=== PATIENT | male | born 2000 | race Caucasian/White ===

== ENCOUNTER 2019-09-27 13:38 | Emergency (ER) | payer OTHER ==
[~2019-09-27] VITALS: Ht 182.9 cm; Wt 81.9 kg
[2019-09-27 14:52] LABS: HEMATOCRIT 46.5 % (42.0-52.0); HEMOGLOBIN 15.9 g/dl (13.5-17.5); MEAN CORPUSCULAR HEMOGLOBIN 30.6 pg (27.0-33.0); MEAN CORPUSCULAR HGB CONC 34.2 g/dl (32.0-36.5); MEAN CORPUSCULAR VOLUME 89.6 fl (80.0-96.0); PLATELET COUNT, AUTOMATED 274 10^3/uL (150-450); RED BLOOD COUNT 5.19 10^6/uL (4.30-6.10); WHITE BLOOD COUNT 7.8 10^3/uL (4.0-10.0)
[2019-09-27 15:16] LABS: AMPHETAMINES LEVEL URINE NEGATIVE (NEGATIVE); BARBITURATES URINE NEGATIVE (NEGATIVE); BENZODIAZEPINES URINE NEGATIVE (NEGATIVE); CANNABINOIDS URINE NEGATIVE (NEGATIVE); COCAINE METABOLITE URINE NEGATIVE (NEGATIVE); METHADONE URINE NEGATIVE (NEGATIVE); OPIATES URINE NEGATIVE (NEGATIVE); PHENCYCLIDINE URINE NEGATIVE (NEGATIVE)
[2019-09-27 15:30] LABS: ACETAMINOPHEN LEVEL < 2.0 UG/ML (10.0-30.0); ALBUMIN 4.3 GM/DL (3.2-5.2); ALT/SGPT 19 U/L (12-78); BILIRUBIN,DIRECT 0.2 MG/DL (0.0-0.2); BILIRUBIN,TOTAL 0.5 MG/DL (0.2-1.0); BLOOD UREA NITROGEN 10 MG/DL (7-18); CALCIUM LEVEL 8.6 MG/DL (8.5-10.1); CARBON DIOXIDE LEVEL 26 MEQ/L (21-32); CHLORIDE LEVEL 107 MEQ/L (98-107); CREATININE FOR GFR 0.82 MG/DL (0.70-1.30); ETHYL ALCOHOL (ETHANOL) 0.042 % (0.000-0.010); GLUCOSE, FASTING 71 MG/DL (70-100); POTASSIUM SERUM 4.3 MEQ/L (3.5-5.1); SALICYLATE LEVEL < 1.7 MG/DL (5.0-30.0); SODIUM LEVEL 141 MEQ/L (136-145); TOTAL PROTEIN 7.5 GM/DL (6.4-8.2)
--- NOTE | 2019-09-27 17:22 | ECGEPIP ---
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
[2019-09-27 20:54] VITALS: BP 110/63
== END 2019-09-27 21:00 ==
LOC: M ED 13:38
DX: F33.2 Major depressive disorder, recurrent severe without psychotic features (principal); R45.851 Suicidal ideations; F17.200 Nicotine dependence, unspecified, uncomplicated
CPT/HCPCS: 36415; 80048; 80076; 80307; 84443; 85027; 93005; 99285; G0480

== ENCOUNTER 2020-04-23 08:23 | Inpatient (IN) | payer OTHER ==
[~2020-04-23] VITALS: Ht 182.9 cm; Wt 190.0 kg
[2020-04-23] MEDS ORDERED: VIST50CA PO (08:37)
[2020-04-23] MEDS ORDERED: PROZ10CA7 PO (08:37)
[2020-04-23 09:15] LABS: HEMATOCRIT 47.5 % (42.0-52.0); HEMOGLOBIN 16.3 g/dl (13.5-17.5); MEAN CORPUSCULAR HGB CONC 34.3 g/dl (32.0-36.5); MEAN CORPUSCULAR VOLUME 87.3 fl (80.0-96.0); PLATELET COUNT, AUTOMATED 307 10^3/uL (150-450); RED BLOOD COUNT 5.44 10^6/uL (4.30-6.10); WHITE BLOOD COUNT 5.3 10^3/uL (4.0-10.0)
[2020-04-23 09:44] LABS: AMPHETAMINES LEVEL URINE NEGATIVE (NEGATIVE); BARBITURATES URINE NEGATIVE (NEGATIVE); BENZODIAZEPINES URINE NEGATIVE (NEGATIVE); CANNABINOIDS URINE NEGATIVE (NEGATIVE); COCAINE METABOLITE URINE NEGATIVE (NEGATIVE); METHADONE URINE NEGATIVE (NEGATIVE); OPIATES URINE NEGATIVE (NEGATIVE); PHENCYCLIDINE URINE NEGATIVE (NEGATIVE)
[2020-04-23 09:53] LABS: ACETAMINOPHEN LEVEL < 2.0 UG/ML (10.0-30.0); ALBUMIN 4.2 GM/DL (3.2-5.2); ALT/SGPT 25 U/L (12-78); BILIRUBIN,DIRECT 0.1 MG/DL (0.0-0.2); BILIRUBIN,TOTAL 0.3 MG/DL (0.2-1.0); BLOOD UREA NITROGEN 11 MG/DL (7-18); CALCIUM LEVEL 8.5 MG/DL (8.5-10.1); CARBON DIOXIDE LEVEL 30 MEQ/L (21-32); CHLORIDE LEVEL 109 MEQ/L (98-107); CREATININE FOR GFR 0.91 MG/DL (0.70-1.30); ETHYL ALCOHOL (ETHANOL) 0.179 % (0.000-0.010); GLUCOSE, FASTING 98 MG/DL (70-100); SALICYLATE LEVEL < 1.7 MG/DL (5.0-30.0); SODIUM LEVEL 140 MEQ/L (136-145); TOTAL PROTEIN 7.6 GM/DL (6.4-8.2)
[2020-04-23] MEDS ORDERED: MOM 30ML SUSPENSION UDC PO PRN (15:30)
[2020-04-23] MEDS ORDERED: ACETAMINOPHEN TAB 650MG DOSE (2X325MG) PO PRN (15:30)
[2020-04-23] MEDS ORDERED: LORazepam 2 MG TAB PO PRN (15:30)
[2020-04-23] MEDS ORDERED: MAALOX 30 ML SUSP *UDC PO PRN (15:30)
[2020-04-23] MEDS ORDERED: MED REC COMMENT (15:38)
[2020-04-23] MEDS: FOLIC ACID 1 MG TAB PO SCH (16:16)
[2020-04-23] MEDS: MULTIVITAMINS/MINERALS THERAP 1 TAB PO SCH (16:17)
[2020-04-23] MEDS: THIAMINE 100 MG TAB PO SCH ×2 (16:17→21:22)
[2020-04-23] MEDS: traZODone 50 MG TAB PO PRN (21:22)
[2020-04-24 06:24] VITALS: BP 130/61
[2020-04-24] MEDS: THIAMINE 100 MG TAB PO SCH ×2 (08:36→21:31)
[2020-04-24] MEDS: MULTIVITAMINS/MINERALS THERAP 1 TAB PO SCH (08:36)
[2020-04-24] MEDS: FOLIC ACID 1 MG TAB PO SCH (08:36)
[2020-04-24] MEDS: NICOTINE 21MG/24HR 1 EA TRANSDERMAL TD SCH (11:16)
[2020-04-24] MEDS: FLUoxetine 10 MG CAP PO SCH (15:08)
[2020-04-24 16:13] VITALS: BP 121/59
[2020-04-24 18:49] VITALS: BP 121/59
--- NOTE | 2020-04-24 19:34 | HPEPDOC ---
[facility] Medical History & Physical Date of Admission Apr 24, 2020 Date of Service: Apr 24, 2020 Attending Physician: DAVE DAILEY DO History and Physical CHIEF COMPLAINT: Consulted for medical intake for psychiatric admission patient. Presented to the ED for suicide attempted, etoh intoxication. Only medical complaint is pain of the R hand, states "i slammed it in a car door accidentally" HISTORY OF PRESENT ILLNESS: Patient presenting to ED after suicide attempt while intoxicated. C/o R hand pain at the side of the head of 5th metacarpal. Injury occured after compressing hand in car door accidently. Denies loss of ROM, no numbness no tingling. PAST MEDICAL HISTORY: 1. etoh use disorder PAST SURGICAL HISTORY: non contributor. SOCIAL HISTORY: etoh use disorder smoker FAMILY HISTORY: non contributory ALLERGIES: Please see below. REVIEW OF SYSTEMS: CONSTITUTIONAL: none. HEENT: none. CARDIOVASCULAR: none RESPIRATORY: none GASTROINTESTINAL: none GENITOURINARY: none SKIN: none MUSCULOSKELETAL: pain in R 5th metacarpal NEUROLOGICAL: no focal neuro deficits PSYCHIATRIC: calm, cooperative ENDOCRINE: none HEMATOLOGIC/LYMPHATIC: none HOME MEDICATIONS: Please see below. PHYSICAL EXAMINATION: GENERAL APPEARANCE: NAD HEENT: PERRLA, EOMI CARDIOVASCULAR: RRR, normal S1, S2 LUNGS: CTA, no wheeze, no rales ABDOMEN: soft, non tender MUSCULOSKELETAL: abrasion on R 5th digit. Pain to palpation of R 5th distal metatarsal. ROM slightly limited due to discomfort. No sensory loss. EXTREMITIES: wnl, no edema NEUROLOGICAL: no focal neuro deficits PSYCHIATRIC: AAO x 3, calm, cooperative. LABORATORY DATA: See below ASSESSMENT: 19 yo M with a hx of etoh use disorder, suicidal ideation, admitted for SI to [facility]. C/o of R hand pain, after it got caught in car door. . PLAN: 1. R hand pain: s/p injury. Obtain R hand xray. Pain control with tylenol. 2. SI: per psychiatry. prozac 10 mg, trazodone 50 mg daily 3. constipation: bowel regimen Thank you for the consult. Please re-consult should need arise. Vital Signs Vital Signs Date Time Temp Pulse Resp B/P (MAP) Pulse Ox O2 Delivery O2 Flow Rate FiO2 04/24/20 18:49 61 121/59 04/24/20 16:13 98.2 18 04/24/20 06:24 Room Air 04/23/20 16:18 97 Home Medications Scheduled Fluoxetine HCl (Prozac) 10 Mg Capsule, 10 MG PO DAILY Hydroxyzine Pamoate (Vistaril) 50 Mg Capsule, 50 MG PO TID for anxiety Miscellaneous Medications [Med Rec Comment] TRYING TO REACH [facility] TO VERIFY MEDS, NO ANSWER Allergies Coded Allergies: No Known Allergies (Verified Allergy, Unknown, 09/27/19) A-FIB/CHADSVASC A-FIB History Current/History of A-Fib/PAF?: No Current PO Anticoag Therapy: No SAWYER STOCKTON MD Apr 24, 2020 19:34
[2020-04-24] MEDS: traZODone 50 MG TAB PO PRN (21:31)
[2020-04-25 06:00] VITALS: BP 135/60
[2020-04-25 06:43] VITALS: BP 135/60
[2020-04-25] MEDS: MULTIVITAMINS/MINERALS THERAP 1 TAB PO SCH (08:48)
[2020-04-25] MEDS: FOLIC ACID 1 MG TAB PO SCH (08:48)
[2020-04-25] MEDS: THIAMINE 100 MG TAB PO SCH ×2 (08:48→21:46)
[2020-04-25] MEDS: NICOTINE 21MG/24HR 1 EA TRANSDERMAL TD SCH (08:48)
[2020-04-25] MEDS: FLUoxetine 10 MG CAP PO SCH (08:48)
[2020-04-25 16:29] VITALS: BP 113/60
[2020-04-25] MEDS: traZODone 50 MG TAB PO PRN (21:46)
[2020-04-26 06:34] VITALS: BP 119/95
[2020-04-26] MEDS: FLUoxetine 10 MG CAP PO SCH (09:25)
[2020-04-26] MEDS: MULTIVITAMINS/MINERALS THERAP 1 TAB PO SCH (09:25)
[2020-04-26] MEDS: FOLIC ACID 1 MG TAB PO SCH (09:25)
[2020-04-26] MEDS: NICOTINE 21MG/24HR 1 EA TRANSDERMAL TD SCH (09:27)
--- NOTE | 2020-04-26 11:41 | MHIPNPDOC ---
[facility] Progress Note Progress Note DATE OF SERVICE: 04/26/20 HISTORY: . VITAL SIGNS: See below. NEW TEST RESULTS: . CURRENT MEDICATIONS: See below. MENTAL STATUS EXAMINATION: Patient is a -year old male, who is . Speech: Is . Language skills are . Thought processes including: . Thought content: . Abstract reasoning, and computation: . Description of associ ations: . Description of abnormal or psychotic thoughts: . Judgment: . Insight: [very limited, good, fair. poor]. Orientation: . Recent and remote memory: . Attention span and concentration: . Language: . Fund of knowledge: . Mood: . Affect: . DIAGNOSES: 1. . 2. . 3. . ASSESSMENT: MANAGEMENT PLAN: . TIME SPENT: minutes. Vital Signs Vital Signs Date Time Temp Pulse Resp B/P (MAP) Pulse Ox O2 Delivery O2 Flow Rate FiO2 04/26/20 06:34 98.0 65 16 119/95 (103) 04/24/20 06:24 Room Air 04/23/20 16:18 97 Current Medications Current Medications Medications (Trade) Dose Ordered Sig/Bryn Route PRN Reason Start Time Stop Time Status Last Admin Dose Admin Acetaminophen (Tylenol Tab) 650 mg Q6HP PRN PO HEADACHE or DISCOMFORT 04/23/20 15:30 Al Hydrox/Mg Hydrox/Simethicone (Mylanta) 30 ml Q4HP PRN PO HEARTBURN/INDIGESTION 04/23/20 15:30 Fluoxetine HCl (PROzac) 10 mg DAILY PO 04/24/20 09:00 04/26/20 09:25 Folic Acid (Folic Acid) 1 mg DAILY PO 04/23/20 09:00 04/26/20 09:25 Home Med (Med Rec Complete!) ASDIRECTED XX 04/26/20 08:15 04/26/20 08:18 DC Lorazepam (Ativan) 2 mg ASDIRECTED PRN PO SEE PROTOCOL 04/23/20 15:30 Magnesium Hydroxide (Milk Of Magnesia) 30 ml DAILYPRN PRN PO CONSTIPATION 04/23/20 15:30 Multivitamins (Theragram-M) 1 tab DAILY PO 04/23/20 09:00 04/26/20 09:25 Nicotine (Nicoderm Cq 21mg) 1 patch DAILY TD 04/24/20 09:00 04/26/20 09:27 Thiamine HCl (Thiamine HCl) 100 mg BID PO 04/23/20 09:00 04/26/20 08:59 DC 04/25/20 21:46 Trazodone HCl (Desyrel) 50 mg QHSP PRN PO INSOMNIA 04/23/20 15:30 04/25/20 21:46 Allergies Coded Allergies: No Known Allergies (Verified Allergy, Unknown, 09/27/19) DAVE DAILEY DO Apr 26, 2020 11:41
--- NOTE | 2020-04-26 17:20 | MHIPNPDOC ---
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 VITAL SIGNS: See below. NEW TEST RESULTS: . CURRENT MEDICATIONS: See below. MENTAL STATUS EXAMINATION: Patient is a 19-year old male, who is admitted to psychiatry for depression, anxiety and suicidal thoughts. Speech: Is spontaneous, fluid and conversation. Normal rate tone and volume Language skills are Good Thought processes including: Reality-base, linear and goal-oriented Thought content: Negative for abnormal thought or psychosis. Abstract reasoning, and computation: Good Description of associations: Negative Description of abnormal or psychotic thoughts: Patient reports depression, anxiety, fleeting suicidal ideation but contracts for safety. Judgment: Fair Insight: Fair Orientation: Alert and oriented Recent and remote memory: Good Attention span and concentration: Good Language: Good Fund of knowledge: Good Mood: Euthymic Affect: Reactive DIAGNOSES: 1. Unspecified Mood Disorder 2. Generalized Anxiety Disorder ASSESSMENT: Patient presents today as euthymic mood and reactive affect. Denies depressive symptoms, suicidal ideation but reports anxiety. Patient has numerous circular quinn to left forearm made by cigarette. Patient states he has a long history of self-harm gestures. He reports one suicidal gesture but no actual attempt. He has good supports, moderately worried that he may be discharged from the but does not that. MANAGEMENT PLAN: Continue on current medication regimen. Patient reports anxiety, long history of it. Buspar 5 mg three times daily TIME SPENT: 30 minutes. Vital Signs Vital Signs Date Time Temp Pulse Resp B/P (MAP) Pulse Ox O2 Delivery O2 Flow Rate FiO2 04/26/20 06:34 98.0 65 16 119/95 (103) 04/24/20 06:24 Room Air 04/23/20 16:18 97 Current Medications Current Medications Medications (Trade) Dose Ordered Sig/Bryn Route PRN Reason Start Time Stop Time Status Last Admin Dose Admin Acetaminophen (Tylenol Tab) 650 mg Q6HP PRN PO HEADACHE or DISCOMFORT 04/23/20 15:30 Al Hydrox/Mg Hydrox/Simethicone (Mylanta) 30 ml Q4HP PRN PO HEARTBURN/INDIGESTION 04/23/20 15:30 Fluoxetine HCl (PROzac) 10 mg DAILY PO 04/24/20 09:00 04/26/20 09:25 Folic Acid (Folic Acid) 1 mg DAILY PO 04/23/20 09:00 04/26/20 09:25 Home Med (Med Rec Complete!) ASDIRECTED XX 04/26/20 08:15 04/26/20 08:18 DC Lorazepam (Ativan) 2 mg ASDIRECTED PRN PO SEE PROTOCOL 04/23/20 15:30 Magnesium Hydroxide (Milk Of Magnesia) 30 ml DAILYPRN PRN PO CONSTIPATION 04/23/20 15:30 Multivitamins (Theragram-M) 1 tab DAILY PO 04/23/20 09:00 04/26/20 09:25 Nicotine (Nicoderm Cq 21mg) 1 patch DAILY TD 04/24/20 09:00 04/26/20 09:27 Thiamine HCl (Thiamine HCl) 100 mg BID PO 04/23/20 09:00 04/26/20 08:59 DC 04/25/20 21:46 Trazodone HCl (Desyrel) 50 mg QHSP PRN PO INSOMNIA 04/23/20 15:30 04/25/20 21:46 Allergies Coded Allergies: No Known Allergies (Verified Allergy, Unknown, 09/27/19) GWENDOLYN SCHWAB NP Apr 26, 2020 17:20
[2020-04-26] MEDS: busPIRone 5 MG TAB PO SCH ×2 (17:29→21:48)
[2020-04-26 17:39] VITALS: BP 116/64
[2020-04-27 06:57] VITALS: BP 127/58
[2020-04-27] MEDS: MULTIVITAMINS/MINERALS THERAP 1 TAB PO SCH (08:13)
[2020-04-27] MEDS: busPIRone 5 MG TAB PO SCH (08:13)
[2020-04-27] MEDS: NICOTINE 21MG/24HR 1 EA TRANSDERMAL TD SCH (08:13)
[2020-04-27] MEDS: FOLIC ACID 1 MG TAB PO SCH (08:13)
[2020-04-27] MEDS: FLUoxetine 10 MG CAP PO SCH (08:13)
[2020-04-27] MEDS ORDERED: BUSP5TA PO (09:45)
[2020-04-27] MEDS ORDERED: PROZ10CA7 PO (09:45)
[2020-04-27] MEDS ORDERED: VIST50CA PO (09:45)
[2020-04-27] MEDS ORDERED: TRAZ-252 PO (09:45)
[2020-04-27] MEDS ORDERED: VITMTA PO (09:45)
[2020-04-27] MEDS ORDERED: FOLI1TAB11 PO (09:45)
[2020-04-27] MEDS ORDERED: NICO21PAT TD (09:45)
[2020-04-27] MEDS ORDERED: FLUoxetine 10 MG CAP PO ONE (10:00)
--- NOTE | 2020-04-27 13:34 | MHDSPDOC ---
[facility] Discharge Summary Discharge Summary DATE OF ADMISSION: Apr 23, 2020 at 15:20 DATE OF DISCHARGE: Apr 27, 2020 at 11:30 DISCHARGE DIAGNOSES: 1. Unspecified Mood Disorder 2. Generalized Anxiety Disorder 3. Alcohol Use Disorder REASON FOR ADMISSION: Patient complained of suicidal ideation and anxiety after drinking excessive amounts of alcohol. CONSULTANTS INVOLVED: Patient see Medical MD's H & P report TREATMENT AND PROGRESS ON THE UNIT : Patient was afforded 1) Individual Therapy, 2) Group Therapy, 3) Medication Management, 4)Milieu Therapy 5) Safe Environment HOSPITAL COURSE: Patient was admitted to inpatient Mental Health for his complaints of anxiety and suicidal ideation. Patient reported that he had an e xcessive amount of alcohol and was "feeling down" and wanted to commit suicide. He states that he has had intermitted depressive symptoms since November but he complains mostly of Anxiety which he reports he has had since he was a teen. He has a alcohol use history and states that he has had this issue for awhile and is currently in Treatment at [facility]. He reports that he has a safety plan with his therapist, his Birgit and that he utilizes it often. He was withdrawn to his room most times but was reading and states that he was very much enjoying the book. He was seen in the common rooms and social with peers when he was in the milieu. DISCHARGE ASSESSMENT: In today's discharge interview patient is requesting discharge. He reports no suicidal or homicidal ideation. No reports of depression or anxiety during today's interview. He is not observed with auditory or visual hallucinations. He is not delusional, paranoid, manic, or observed with any abnormal thought content. 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 He reported that he had been drinking and wrapped a belt around his neck and was looking for a high place to hang himself. He reports that he did not do anything but tie the belt around his neck. He then called his [facility] and reported his suicidal gesture. He presents with good hygiene and grooming, dress is appropriate. Speech is spontaneous, fluid and mildly conversant. Language skills are Good Thought processes including: linear and goal oriented Thought content: Negative for adnormal thoughts content Abstract reasoning, and computation: Good Description of associations: Negative Description of abnormal or psychotic thoughts: Negative Judgment: Fair to good Insight: Fair to good Orientation to alert and orientation Recent and remote memory: Intact Attention span and concentration: Good Language: Good. Speak Malawian as primary language Fund of knowledge: Good. congruent with his education Mood: Euthymic Affect: Euthymic MEDICATIONS ON DISCHARGE: See medication reconciliation PLAN/FOLLOWUP ARRANGEMENTS: Patient will follow up with [facility] The amount of time spent in the coordination of care for this patient was approximately 45 minutes. Vital Signs/I&Os Vital Signs Date Time Temp Pulse Resp B/P (MAP) Pulse Ox O2 Delivery O2 Flow Rate FiO2 04/27/20 06:57 97.9 68 12 127/58 (81) 99 Room Air Medications Scheduled Buspirone HCl (Buspirone HCl) 5 Mg Tablet, 5 MG PO TID for anxiety, #21 Fluoxetine HCl (Prozac) 10 Mg Capsule, 20 MG PO DAILY for . , #7 Folic Acid (Folic Acid) 1 Mg Tablet, 1 MG PO DAILY for vitamin replacement, #7 Multivitamins (Thera M Plus Tablet) 1 Each Tablet, 1 TAB PO DAILY for Multivitamin, #7 Nicotine (Nicotine Patch) 21 Mg Patch.td24, 1 PATCH TD DAILY for Nicotine Withdrawal, #7 Scheduled PRN Hydroxyzine Pamoate (Vistaril) 50 Mg Capsule, 50 MG PO BIDP PRN for ANXIETY, #14 Trazodone HCl (Trazodone HCl) 50 Mg Tablet, 50 MG PO QHSP PRN for INSOMNIA, #7 Allergies Coded Allergies: No Known Allergies (Verified Allergy, Unknown, 09/27/19) GWENDOLYN SCHWAB NP Apr 27, 2020 13:34
--- NOTE | 2020-05-27 08:50 | REP ---
RIGHT HAND SERIES: 2-VIEWS HISTORY: Pain status post injury. FINDINGS: AP and lateral views of the right hand demonstrates overall normal mineralization. There is no evidence of fracture or subluxation. A small bone island is seen in the navicular. Join spaces are preserved. No opaque foreign body seen. IMPRESSION: Negative 2-view right hand radiograph. MTDD
--- NOTE | 2020-06-07 10:14 | MHHPEPDOC ---
PSYCHIATRIC DATE OF ADMISSION: 04/24/2020 VITAL SIGNS: Blood pressure 130/61, pulse 88, temperature 97.8. CHIEF COMPLAINT: Feels stressed. 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 Came in after been feeling stressed, though says was overall doing well and was clearing some of his belongings, a duffle bag. Says found alcohol that he had from the past. Says took some. [place] stressed and suicidal and tried hanging himself. Says it was not much of an attempt. Had a belt around the door and the other end around his neck but says his feet were firmly on the ground. Did not attempt changing any of that. 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 Says he relapsed with the alcohol a couple of days ago, when he found it in his belongings. Says has not had a drink since November this year. He [facility] [place] [facility]. Also outpatient behavioral health. Has been on Prozac at 10 mg daily the last several months. Says he stopped taking it just prior to taking the alcohol. Does not think it made much of a difference. He says he was thought to be doing relatively well. Had visited his family last month, out of state. Says that went well. t his was after he had surgery on his left arm, for which he has a cast. He says was placed on the Prozac when he was admitted to inpatient psychiatry. This was in late September/early October this year, when he had come into the hospital here in the emergency room and was transferred to [facility] in [place]. Had come in at that time, as he was distressed. Was dealing with his younger brother's . His brother had hanged himself. This is late last year. PAST PSYCHIATRIC HISTORY: As indicated above, one inpatient hospitalization. Attends outpatient behavioral health at [facility]. MEDICAL HISTORY: Has a cast on his left arm. Had surgery there. 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 Lives in the [facility]. Family elsewhere, in [place]. Says was recently talking to his father. MENTAL STATUS EXAMINATION: Wears a mask. Has a cast on his left arm. Is cooperative. No agitation. No psychomotor retardation. Denies active suicidal thoughts or intents. No homicidal ideas or intents. No evidence of any psychosis. Cognition grossly intact. Judgment and insight are questionable. Intellect average. No fluctuation of consciousness. Investigations show a complete blood count within normal limits. Metabolic profile essentially within normal limits. Toxicology essentially negative, but alcohol level was 0.179 at admission. ASSESSMENT: 1. Other specified depressive disorder. 2. Consider adjustment disorder. 3. Alcohol use disorder. Has been doing relatively well until he relapsed with the alcohol the other day. Unclear if Prozac has been any use at that dose at 10 mg daily. PLAN: He is admitted to the inpatient psychiatric unit, placed on relevant precautions. We will look at obtaining collateral information. He will receive a medicine consult if indicated. After a discussion, he will resume on Prozac at 10 mg daily, and I am not quite sure whether he needs it. That can be assessed as an outpatient. Collateral information may complete the clinical picture, however. He is to be encouraged to participate in activities in the unit. He will be discharged to followup once he is stable. Anticipate a 5-7 day stay. The assessment took 30 minutes. SANDRITA
--- NOTE | 2020-06-11 12:00 | MHIPN ---
DATE: 04/25/2020 VITAL SIGNS: Blood pressure 135/60, pulse 78, temperature 98.1. CHIEF COMPLAINT: Says feels okay. SUBJECTIVE: Seen for followup in the presence of staff. Says feels better and that he slept well. Has been hungry, mood is improved, denies any major anxiety at present, denies being depressed, denies any thoughts of harming himself or anyone else. MENTAL STATUS EXAMINATION: He is neat, he is cooperative, there is no agitation, no psychomotor retardation, he is coherent, affect is reactive though somewhat restricted. Denies any thoughts of harming himself or anyone else, does not appear internally preoccupied. Cognition grossly intact. Judgment and insight fair. ASSESSMENT: He is clinically improved, and reiterated that if it was not for the alcohol it is unlikely that he would have attempted his life, and says does not think that had attempted it in essence, given what he did. PLAN: He has been resumed on the fluoxetine at 10 mg daily for now, may need to reassess its indications when seen as an outpatient. The concern regarding his using alcohol, and therefore clouded judgment, is discussed. Further recommendations will be made depending on the clinical picture, and when he sees the assigned psychiatrist tomorrow. SANDRITA
== END 2020-04-27 11:30 | disposition home or self-care (01) | DRG 885 ==
LOC: M ED 08:23 → M ED INP 15:20 → M PSY 16:27
PROVIDERS: ADMIT Psychiatry & Neurology Addiction Medicine; ATTEND Psychiatry & Neurology Psychiatry
DX: F29 Unspecified psychosis not due to a substance or known physiological condition (principal); R45.851 Suicidal ideations; F41.1 Generalized anxiety disorder; F10.10 Alcohol abuse, uncomplicated; Z79.899 Other long term (current) drug therapy; K59.00 Constipation, unspecified

== ENCOUNTER → 2022-12-04 | Outpatient (REF) ==
[~2022-12-04] MED LIST: BUSP5TA PO; FOLI1TAB11 PO; MED REC COMMENT; NICO21PAT TD; PROZ10CA7 PO; TRAZ-252 PO; VIST50CA PO; VITMTA PO
== END ==
LOC: M PLAIMG 11:00
PROVIDERS: ATTEND Internal Medicine
DX: R52 Pain, unspecified (principal)